=== PATIENT | male | born 1955 | race Caucasian/White ===

== ENCOUNTER → 2016-09-30 | Outpatient (CLI) | payer BC ==
[2016-09-30 08:32] LABS: Basophils # (A) 0.1 k/uL (0-0.2); Basophils % (A) 1 %; CH 30.6; CHCM 33.9; Eosinophils # (A) 0.3 k/uL (0-0.7); Eosinophils % (A) 4 %; HCT 38.9 % (39.0-53.0); HDW 2.61; HGB 12.8 gm/dL (13.0-17.5); Luc # (Auto) 0.18; Luc % (Auto) 3; Lymphocytes # (A) 1.3 k/uL (1.0-4.8); Lymphocytes % (A) 21 %; MCH 29.9 pg (25.0-35.0); MCHC 32.9 g/dL (31.0-37.0); MCV 90.8 fL (80.0-100.0); Mean Platelet Volume 7.6; Monocytes # (A) 0.4 k/uL (0-1.0); Monocytes % (A) 7 %; Neutrophils # (A) 4.1 k/uL (1.3-7.7); Neutrophils % (A) 65 %; RBC 4.29 m/uL (4.30-5.90); RDW 13.6 % (11.5-15.5); WBC 6.4 k/uL (3.8-10.6); WBC (Perox) 6.88
[2016-09-30 10:21] LABS: Prostate Specific Antigen 0.18 ng/mL (0.00-4.00)
== END | disposition home or self-care (01) ==
LOC: LABWHC1 07:50
DX: C61 Malignant neoplasm of prostate (principal)
CPT/HCPCS: 36415; 84153; 84403; 85025

== ENCOUNTER → 2017-02-05 | Outpatient (CLI) | payer BC | END | disposition home or self-care (01) | LOC: LABWHC1 07:42 | PROVIDERS: ATTEND Radiology Radiation Oncology | DX: C61 Malignant neoplasm of prostate (principal) | CPT/HCPCS: 36415; 84153 ==

== ENCOUNTER → 2017-12-22 | Outpatient (CLI) | payer BC | END | disposition home or self-care (01) | LOC: LABWHC1 09:58 | PROVIDERS: ATTEND Urology | DX: C61 Malignant neoplasm of prostate (principal) | CPT/HCPCS: 36415; 84153; 84403 ==

== ENCOUNTER → 2018-03-13 | Outpatient (CLI) | payer BC | END | disposition home or self-care (01) | LOC: LABWHC1 10:12 | PROVIDERS: ATTEND Urology | DX: C61 Malignant neoplasm of prostate (principal) | CPT/HCPCS: 36415; 84153; 84403 ==

== ENCOUNTER → 2018-07-16 | Outpatient (CLI) | payer BC ==
[2018-07-16 16:59] LABS: Albumin 4.3 g/dL (3.80-4.90); Albumin/Globulin Ratio 2.26 (1.20-2.10); Bilirubin, Conjugated 0.2 mg/dL (0.20-0.40); Bilirubin,Unconjugated 0.3 mg/dL; Globulin 1.9 g/dL (2.1-3.7); LDL Cholesterol,Calculated 60.6 mg/dL (0.0-131.0); Total Bilirubin 0.5 mg/dL (0.2-1.2); Total Protein 6.2 g/dL (6.2-8.2); VLDL Calculation 32.4 mg/dL (5.00-40.00)
== END ==
LOC: LABWHC1 08:09
PROVIDERS: ATTEND Internal Medicine Interventional Cardiology
DX: I10 Essential (primary) hypertension (principal); E78.2 Mixed hyperlipidemia
CPT/HCPCS: 36415; 80061; 80076

== ENCOUNTER → 2018-08-21 | Outpatient (CLI) | payer BC | END | disposition home or self-care (01) | LOC: LABWHC1 08:16 | PROVIDERS: ATTEND Urology | DX: C61 Malignant neoplasm of prostate (principal) | CPT/HCPCS: 36415; 84153 ==

== ENCOUNTER → 2019-02-26 | Outpatient (CLI) | payer BC | END | disposition home or self-care (01) | LOC: LABWHC1 08:43 | PROVIDERS: ATTEND Urology | DX: C61 Malignant neoplasm of prostate (principal) | CPT/HCPCS: 36415; 84153 ==

== ENCOUNTER → 2019-04-03 | Outpatient (CLI) | payer BC ==
--- NOTE | 2019-04-03 16:27 | US ---
EXAMINATION TYPE: US kidneys/renal and bladder DATE OF EXAM: 04/03/2019 COMPARISON: NONE CLINICAL HISTORY: R31.9 HEMATURIA. Hematuria EXAM MEASUREMENTS: Right Kidney: 11.6 x 5.2 x 4.9 cm Left Kidney: 11.6 x 5.0 x 4.8 cm Right Kidney: Hypoechoic area superior pole 2.3 x 2.6 x 2.1 cm. Left Kidney: Hypoechoic area mid pole 1.3 x 2.0 x 1.8cm. Bladder: Anechoic not fully distended. Bilateral Jets seen: No No nephrolithiasis is seen. No masses are identified. The urinary bladder is anechoic. IMPRESSION: 1. Bilateral simple appearing renal cysts
== END | disposition home or self-care (01) ==
LOC: RADUSWWP 09:24
PROVIDERS: ATTEND Urology
DX: N28.1 Cyst of kidney, acquired (principal)
CPT/HCPCS: 76770

== ENCOUNTER → 2019-04-08 | Outpatient (CLI) | payer BC ==
[2019-04-08 10:23] LABS: HCT 42.7 % (39.0-53.0); HGB 14.4 gm/dL (13.0-17.5); MCHC 33.7 g/dL (31.0-37.0); Mean Platelet Volume 6.9; Platelet Count 232 k/uL (150-450); RBC 4.64 m/uL (4.30-5.90); RDW 13.2 % (11.5-15.5); WBC 7.9 k/uL (3.8-10.6)
[2019-04-08 15:37] LABS: African American GFR (CKD) 81.2 (60.0-200.0); Albumin 4.3 g/dL (3.80-4.90); Albumin/Globulin Ratio 2.39 (1.60-3.17); Anion Gap 8.1 mmol/L (4.00-12.00); BUN/Creat Ratio 15.45 Ratio (12.00-20.00); Bilirubin, Conjugated 0.2 mg/dL (0.20-0.40); Bilirubin,Unconjugated 0.4 mg/dL; Calcium 8.9 mg/dL (8.7-10.3); Carbon Dioxide 25.9 mmol/L (21.6-31.8); Chol/HDL Ratio 3.67; Globulin 1.8 g/dL (1.6-3.3); LDL Cholesterol,Calculated 58.6 mg/dL (0.0-131.0); Potassium 5.1 mmol/L (3.5-5.5); Total Bilirubin 0.6 mg/dL (0.2-1.2); Total Protein 6.1 g/dL (6.2-8.2); VLDL Calculation 29.4 mg/dL (5.00-40.00)
== END | disposition home or self-care (01) ==
LOC: LABWHC1 09:30
PROVIDERS: ATTEND Internal Medicine Interventional Cardiology
DX: E78.2 Mixed hyperlipidemia (principal); I25.810 Atherosclerosis of coronary artery bypass graft(s) without angina pectoris; R53.82 Chronic fatigue, unspecified
CPT/HCPCS: 36415; 80053; 80061; 82248; 85027

== ENCOUNTER → 2019-04-17 | Outpatient (CLI) | payer BC ==
--- NOTE | 2019-04-17 12:23 | XR ---
EXAMINATION TYPE: XR chest 2V DATE OF EXAM: 04/17/2019 COMPARISON: 01/17/2014 HISTORY: Shortness of breath TECHNIQUE: Frontal and lateral views of the chest are obtained. FINDINGS: Scattered senescent parenchymal changes noted. Hyperinflation compatible with COPD. No evidence for infiltrate. No evidence for atelectasis. Heart size is stable. Mediastinal structures are stable and grossly unremarkable. No evidence for hilar prominence. Degenerative changes dorsal spine. IMPRESSION: 1. No evidence for acute pulmonary disease.
--- NOTE | 2019-04-17 12:23 | XR ---
EXAMINATION TYPE: XR orbit detect foreign body DATE OF EXAM: 04/17/2019 COMPARISON: NONE HISTORY: Foreign body TECHNIQUE: 3 views of the orbits are submitted FINDINGS: No radiopaque foreign bodies identified. IMPRESSION: The patient is cleared for MRI.
== END | disposition home or self-care (01) ==
LOC: RADXRMAIN 11:45
PROVIDERS: ATTEND Family Medicine
DX: I25.810 Atherosclerosis of coronary artery bypass graft(s) without angina pectoris (principal); H05.50 Retained (old) foreign body following penetrating wound of unspecified orbit
CPT/HCPCS: 70030; 71046

== ENCOUNTER → 2019-10-03 | Outpatient (CLI) | payer BC | END | disposition home or self-care (01) | LOC: LABWHC1 09:48 | PROVIDERS: ATTEND Urology | DX: C61 Malignant neoplasm of prostate (principal) | CPT/HCPCS: 36415; 84153 ==

== ENCOUNTER → 2020-03-29 | Outpatient (CLI) | payer BC ==
[2020-03-29 16:08] LABS: Albumin 4.3 g/dL (3.80-4.90); Albumin/Globulin Ratio 2.26 (1.60-3.17); Bilirubin, Conjugated 0.3 mg/dL (0.20-0.40); Bilirubin,Unconjugated 0.5 mg/dL; Globulin 1.9 g/dL (1.6-3.3); Total Bilirubin 0.8 mg/dL (0.3-1.2); Total Protein 6.2 g/dL (6.2-8.2)
[2020-03-29 16:09] LABS: Chol/HDL Ratio 3.64; LDL Cholesterol,Calculated 53.6 mg/dL (0.0-131.0); VLDL Calculation 33.4 mg/dL (5.00-40.00)
== END | disposition home or self-care (01) ==
LOC: LABWHC1 07:40
PROVIDERS: ATTEND Internal Medicine Interventional Cardiology
DX: E78.2 Mixed hyperlipidemia (principal)
CPT/HCPCS: 36415; 80061; 80076

== ENCOUNTER 2020-10-10 19:43 | Emergency (ER) | payer BC ==
[2020-10-10 19:50] VITALS: BP 177/105; PULSE 80; RESP 20; TEMP 98
--- NOTE | 2020-10-10 20:29 | ED ---
Male Urogenital HPI - General Chief complaint: Urogenital Stated complaint: Urogenital Time Seen by Provider: 10/10/20 19:53 Source: patient Mode of arrival: ambulatory Limitations: no limitations - History of Present Illness Initial comments: 65-year-old male with history of prostate cancer presents emergency Department with a chief complaint of not able to urinate. Patient reports undergoing a TURP procedure 5 years ago secondary to prostate cancer and was soon followed with radiation therapy. Patient reports she has been cancer free since. How ever, he does have intermittent gross hematuria and that is typical for him. He reports prior to today, he had no difficulty urinating aside from having increased frequency which is typical for him. While he was at the store today, he felt an urgency to go but was not able to urinate. He reports retaining urine ever since then. He states he came to the emergency department earlier today and prior to checking in, he went to the bathroom and was urinating without difficult. After he returned home, the obstructive urinary symptoms reoccurred so he decided to come back. He reports a sensation of a full bladder. He denies any penile discharge, testicular swelling or erythema. Denies dysuria. He does follow-up with - Related Data Home Medications Medication Instructions Recorded Confirmed Naproxen Sodium [Aleve] 440 mg PO DAILY 01/11/14 12/11/14 Omeprazole [PriLOSEC] 20 mg PO AC-BRKFST 01/11/14 12/11/14 Cyclobenzaprine [Flexeril] 10 mg PO TID 07/15/14 12/11/14 Finasteride [Proscar] 5 mg PO HS 07/15/14 12/11/14 Tamsulosin HCl 0.4 mg PO HS 07/15/14 12/11/14 Previous Rx's Medication Instructions Recorded Aspirin EC [Ecotrin Low Dose] 162 mg PO DAILY #60 tablet. 01/17/14 Atorvastatin [Lipitor] 40 mg PO HS #30 tablet 01/17/14 Metoprolol Tartrate [Lopressor] 25 mg PO BID #60 tab 01/17/14 lisinopriL [Zestril] 5 mg PO HS #30 tab 01/17/14 Allergies Allergy/AdvReac Type Severity Reaction Status Date / Time No Known Allergies Allergy Verified 10/10/20 19:50 Review of Systems ROS Statement: Those systems with pertinent positive or pertinent negative responses have been documented in the HPI. ROS Other: All systems not noted in ROS Statement are negative. 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 knee surgery. heart surgery Past Anesthesia/Blood Transfusion Reactions: No Reported Reaction Past Psychological History: No Psychological Hx Reported Smoking Status: Former smoker Past Alcohol Use History: None Reported Past Drug Use History: None Reported - Past Family History Mother Family Medical History: Cancer Additional Family Medical History / Comment(s): Renal Cancer Sister(s) Family Medical History: Myocardial Infarction ([place]) Additional Family Medical History / Comment(s): Both sisters have had heart attacks. One in late 50's. One at 65 Father Family Medical History: Congestive Heart Failure (CHF) Additional Family Medical History / Comment(s): 12/24 from complications of CHF General Exam Limitations: no limitations General appearance: alert, in no apparent distress, obese Head exam: Present: atraumatic, normocephalic, normal inspection Eye exam: Present: normal appearance, PERRL, EOMI Pupils: Present: normal accommodation ENT exam: Present: normal exam, normal oropharynx, mucous membranes moist Neck exam: Present: normal inspection, full ROM. Absent: tenderness Respiratory exam: Present: normal lung sounds bilaterally. Absent: respiratory distress Cardiovascular Exam: Present: regular rate, normal rhythm, normal heart sounds GI/Abdominal exam: Present: soft. Absent: distended, tenderness, guarding, rebound, rigid exam: Present: normal inspection. Absent: testicular tenderness, urethral discharge, scrotal swelling, vertical testicular lie Extremities exam: Present: normal inspection, full ROM, normal capillary refill. Absent: tenderness Back exam: Present: normal inspection, full ROM. Absent: tenderness Neurological exam: Present: alert, oriented X3, normal gait Psychiatric exam: Present: normal affect, normal mood Skin exam: Present: warm, dry, intact, normal color Course Vital Signs 10/10/20 19:46 Temperature 98 F Pulse Rate 80 Respiratory 20 Rate Blood Pressure 177/105 O2 Sat by Pulse 99 Oximetry Medical Decision Making - Medical Decision Making 65-year-old male with history of prostate cancer presents to emergency department with a chief complaint of not able to urinate. Physical examination is unremarkable. Patient was able to urinate initially when he arrived to the emergency department and a post void residual volume was 264 mL. Towards the end of his ED course, patient was not able to urinate again. CBC CMP unremarkable. UA positive for hematuria but no signs of urinary tract infec tion. King catheter will be administered he was given additional instructions regarding the proper maintenance of the King catheter. He will follow-up with Dr. Billingsley. Strict return parameters were thoroughly discussed with patient was understanding and agreeable. Case discussed with Dr. Hawkins - Lab Data Result diagrams: 10/10/20 20:25 10/10/20 20:25 Lab Results 10/10/20 10/10/20 10/10/20 Range/Units 20:04 20:25 20:25 WBC 8.1 (3.8-10.6) k/uL RBC 4.86 (4.30-5.90) m/uL Hgb 15.0 (13.0-17.5) gm/dL Hct 43.7 (39.0-53.0) % MCV 89.9 (80.0-100.0) fL MCH 30.9 (25.0-35.0) pg MCHC 34.4 (31.0-37.0) g/dL RDW 12.9 (11.5-15.5) % Plt Count 252 (150-450) k/uL MPV 7.4 Neutrophils % 67 % Lymphocytes % 19 % Monocytes % 8 % Eosinophils % 3 % Basophils % 1 % Neutrophils # 5.5 (1.3-7.7) k/uL Lymphocytes # 1.6 (1.0-4.8) k/uL Monocytes # 0.6 (0-1.0) k/uL Eosinophils # 0.3 (0-0.7) k/uL Basophils # 0.1 (0-0.2) k/uL Sodium 138 (137-145) mmol/L Potassium 4.3 (3.5-5.1) mmol/L Chloride 105 (98-107) mmol/L Carbon Dioxide 24 (22-30) mmol/L Anion Gap 9 mmol/L BUN 17 (9-20) mg/dL Creatinine 0.96 (0.66-1.25) mg/dL Est GFR (CKD-EPI)AfAm >90 (>60 ml/min/1.73 sqM) Est GFR (CKD-EPI)NonAf 82 (>60 ml/min/1.73 sqM) Glucose 101 H (74-99) mg/dL Calcium 9.1 (8.4-10.2) mg/dL Total Bilirubin 0.5 (0.2-1.3) mg/dL AST 29 (17-59) U/L ALT 29 (4-49) U/L Alkaline Phosphatase 91 (38-126) U/L Total Protein 7.1 (6.3-8.2) g/dL Albumin 4.4 (3.5-5.0) g/dL Urine Color Yellow Urine Appearance Clear (Clear) Urine pH 5.5 (5.0-8.0) Ur Specific G[place] 1.008 (1.001-1.035) Urine Protein Negative (Negative) Urine Glucose (UA) Negative (Negative) Urine Ketones Negative (Negative) Urine Blood Large H (Negative) Urine Nitrite Negative (Negative) Urine Bilirubin Negative (Negative) Urine Urobilinogen <2.0 (<2.0) mg/dL Ur Leukocyte Esterase Negative (Negative) Urine RBC 81 H (0-5) /hpf Urine WBC 4 (0-5) /hpf Amorphous Sediment Rare H (None) /hpf Urine Bacteria Rare H (None) /hpf Urine Mucus Rare H (None) /hpf Disposition Clinical Impression: Urinary retention, Hematuria, Encounter for King catheter replacement Disposition: HOME SELF-CARE Condition: Stable Instructions (If sedation given, give patient instructions): Urinary Retention in Men (ED) Additional Instructions: Follow-up with . Please return to the Emergency Department if symptoms worsen or any other concerns. Is patient prescribed a controlled substance at d/c from ED?: No Referrals: Francia Johnson III, MD [Primary Care Provider] - 1-2 days Jelani Billingsley MD [STAFF PHYSICIAN] - 1-2 days Time of Disposition: 21:06
[2020-10-10 20:36] LABS: Basophils # (A) 0.1 k/uL (0-0.2); Basophils % (A) 1 %; Eosinophils # (A) 0.3 k/uL (0-0.7); Eosinophils % (A) 3 %; HCT 43.7 % (39.0-53.0); Lymphocytes # (A) 1.6 k/uL (1.0-4.8); Lymphocytes % (A) 19 %; MCH 30.9 pg (25.0-35.0); MCHC 34.4 g/dL (31.0-37.0); MCV 89.9 fL (80.0-100.0); Mean Platelet Volume 7.4; Monocytes # (A) 0.6 k/uL (0-1.0); Monocytes % (A) 8 %; Neutrophils # (A) 5.5 k/uL (1.3-7.7); Neutrophils % (A) 67 %; Platelet Count 252 k/uL (150-450); RBC 4.86 m/uL (4.30-5.90); RDW 12.9 % (11.5-15.5); WBC 8.1 k/uL (3.8-10.6)
[2020-10-10 20:37] LABS: Amorphous Sediment,Urine Rare /hpf; Appearance,Urine Clear (Clear); Bacteria,Urine Rare /hpf; Bilirubin,Urine Negative (Negative); Blood,Urine Large (Negative); Color,Urine Yellow; Glucose,Urine (UA) Negative (Negative); Ketones,Urine Negative (Negative); Leukocyte Esterase,Urine Negative (Negative); Mucus,Urine Rare /hpf; Nitrite,Urine Negative (Negative); PH, Urine 5.5 (5.0-8.0); Protein,Urine Negative (Negative); RBC,Urine 81 /hpf (0-5); Specific Gravity,Urine 1.008 (1.001-1.035); Urobilinogen,Urine <2.0 mg/dL (<2.0); WBC,Urine 4 /hpf (0-5)
[2020-10-10 20:46] LABS: ALT 29 U/L (4-49); AST 29 U/L (17-59); African American GFR (CKD) >90 (>60 ml/min/1.73 sqM); Albumin 4.4 g/dL (3.5-5.0); Alkaline Phosphatase 91 U/L (38-126); Anion Gap 9 mmol/L; Blood Urea Nitrogen 17 mg/dL (9-20); Calcium 9.1 mg/dL (8.4-10.2); Carbon Dioxide 24 mmol/L (22-30); Chloride 105 mmol/L (98-107); Glucose 101 mg/dL (74-99); Non-African American GFR(CKD) 82 (>60 ml/min/1.73 sqM); Potassium 4.3 mmol/L (3.5-5.1); Sodium 138 mmol/L (137-145); Total Bilirubin 0.5 mg/dL (0.2-1.3); Total Protein 7.1 g/dL (6.3-8.2)
== END 2020-10-10 21:55 | disposition home or self-care (01) ==
LOC: EC 19:43
DX: R31.9 Hematuria, unspecified (principal); R33.9 Retention of urine, unspecified; Z46.6 Encounter for fitting and adjustment of urinary device; I25.10 Atherosclerotic heart disease of native coronary artery without angina pectoris; Z79.82 Long term (current) use of aspirin; Z85.46 Personal history of malignant neoplasm of prostate; Z87.891 Personal history of nicotine dependence; Z82.49 Family history of ischemic heart disease and other diseases of the circulatory system
CPT/HCPCS: 36415; 51702; 51798; 80053; 81001; 85025; 99283

== ENCOUNTER → 2020-10-30 | Outpatient (CLI) | payer BC | END | disposition home or self-care (01) | LOC: LABMAIN 08:51 | PROVIDERS: ATTEND Urology | DX: C61 Malignant neoplasm of prostate (principal) | CPT/HCPCS: 36415; 84153 ==

== ENCOUNTER → 2021-11-05 | Outpatient (CLI) | payer BC ==
[2021-11-05 12:30] LABS: Chol/HDL Ratio 3.24 Ratio; LDL Cholesterol,Calculated 63.4 mg/dL (0.0-131.0)
[2021-11-05 12:44] LABS: ALT 26 U/L (10-49); AST 17 U/L (14-35); Albumin 4.3 g/dL (3.8-4.9); Albumin/Globulin Ratio 2.05 (1.60-3.17); Alkaline Phosphatase 90 U/L (41-126); Bilirubin, Conjugated <0.20 mg/dL (0.20-0.40); Globulin 2.1 g/dL (1.6-3.3); Total Protein 6.4 g/dL (6.2-8.2)
== END | disposition home or self-care (01) ==
LOC: LABWHC1 08:05
PROVIDERS: ATTEND Internal Medicine Interventional Cardiology
DX: E78.2 Mixed hyperlipidemia (principal)
CPT/HCPCS: 36415; 80061; 80076

== ENCOUNTER → 2022-02-28 | Outpatient (CLI) | payer BC ==
[2022-02-28 14:47] LABS: Prostate Specific Antigen 19.8 ng/mL (0.00-4.50)
== END | disposition home or self-care (01) ==
LOC: LABWHC1 09:13
PROVIDERS: ATTEND Urology
DX: C61 Malignant neoplasm of prostate (principal)
CPT/HCPCS: 36415; 84153; 84403

== ENCOUNTER → 2022-05-20 | Outpatient (CLI) | payer BC ==
[2022-05-20 17:41] LABS: Testosterone <2.50 ng/mL (86.98-780.10)
== END | disposition home or self-care (01) ==
LOC: LABWHC1 08:59
PROVIDERS: ATTEND Urology
DX: C61 Malignant neoplasm of prostate (principal)
CPT/HCPCS: 36415; 84153; 84403

== ENCOUNTER → 2023-02-17 | Outpatient (CLI) | payer MEDICARE ==
[2023-02-18 08:44] LABS: Testosterone <10.00 ng/dL (86.98-780.10)
== END | disposition home or self-care (01) ==
LOC: LABWHC1 09:19
PROVIDERS: ATTEND Urology
DX: C61 Malignant neoplasm of prostate (principal)
CPT/HCPCS: 36415; 84153; 84403

== ENCOUNTER → 2023-06-01 | Outpatient (CLI) | payer MEDICARE, OTHER ==
[2023-06-01 16:53] LABS: Prostate Specific Antigen 0.14 ng/mL (0.000-4.500)
[2023-06-01 18:23] LABS: Testosterone <10.00 ng/dL (86.98-780.10)
== END | disposition home or self-care (01) ==
LOC: LABWHC1 11:39
PROVIDERS: ATTEND Urology
DX: C61 Malignant neoplasm of prostate (principal)
CPT/HCPCS: 36415; 84153; 84403

== ENCOUNTER → 2023-08-14 | Outpatient (CLI) | payer MEDICARE ==
--- NOTE | 2023-08-18 09:11 | NM ---
EXAMINATION TYPE: NM bone scan whole body DATE OF EXAM: 08/14/2023 12:06 PM CLINICAL INDICATION:Male, 67 years old with history of C61 prostate ca; COMPARISON: NM bone scan whole body 11/10/2014 TECHNIQUE: Intravenous administration 25.8 mCi Tc 99m MDP followed by multiple scintigraphic images o f the appendicular and axial skeleton. Additionally, small field of view planar anterior and posterio r images of the lumbosacral spine and pelvis. Lastly, coronal, transverse, and sagittal SPECT images of the lumbosacral spine and pelvis were generated for review.Lastly, small [id number] anterior, p osterior and lateral views of the chest were submitted for review. Images acquired 3.5 hours post injection. FINDINGS: No abnormal uptake is identified within the appendicular or axial skeleton to suggest metastatic dise ase. There is increased uptake seen in the central portion of the face likely from paranasal sinus disease . Mild activity about the shoulders, spine, hips and slightly greater activity in the knees especiall y medial compartment and medial proximal tibias, and mild activity about the ankles, most consistent with chronic degenerative changes. No other photopenic areas or areas of increased activity are ident ified. There is uptake seen in the kidneys and bladder which is normal physiologic. Some uptake seen in the groin area likely urinary contamination. IMPRESSION: No scintigraphic evidence of skeletal metastatic disease.
== END | disposition home or self-care (01) ==
LOC: RADNMMAIN 07:16
PROVIDERS: ATTEND Urology
DX: C61 Malignant neoplasm of prostate (principal)
CPT/HCPCS: 78306; A9503

== ENCOUNTER → 2023-09-26 | Outpatient (CLI) | payer MEDICARE ==
[2023-09-26 10:23] LABS: Prothrombin Time 10.5 sec (10.0-12.5)
[2023-09-26 15:33] LABS: HCT 37.5 % (39.6-50.0); HGB 12.6 g/dL (13.0-17.0); MCH 31.2 pg (27.0-32.0); MCHC 33.6 g/dL (32.0-37.0); MCV 92.8 FL (80.0-97.0); Mean Platelet Volume 10.5 FL (9.5-12.2); NRBC Per 100 WBC 0 X 10*3/uL (0.00-0.01); Platelet Count 262 X 10*3/uL (140-440); RBC 4.04 X 10*6/uL (4.40-5.60); RDW 12.6 % (11.5-14.5); WBC 7.12 X 10*3/uL (4.50-10.00)
[2023-09-26 15:43] LABS: BUN/Creat Ratio 18.57 Ratio (12.00-20.00); Calcium 9.6 mg/dL (8.7-10.3); Carbon Dioxide 23.6 mmol/L (21.6-31.8); Chloride 103 mmol/L (96-109); Glucose 157 mg/dL (70-110); Potassium 4.5 mmol/L (3.5-5.5); Sodium 140 mmol/L (135-145)
== END | disposition home or self-care (01) ==
LOC: LABWHC1 08:39
PROVIDERS: ATTEND Internal Medicine Interventional Cardiology
DX: Z01.812 Encounter for preprocedural laboratory examination (principal); I25.10 Atherosclerotic heart disease of native coronary artery without angina pectoris
CPT/HCPCS: 36415; 80048; 85027; 85610; 85730

== ENCOUNTER → 2023-11-23 | Outpatient (CLI) | payer MEDICARE ==
[2023-11-23 17:26] LABS: Testosterone <10.00 ng/dL (86.98-780.10)
== END | disposition home or self-care (01) ==
LOC: LABWHC1 10:13
PROVIDERS: ATTEND Urology
DX: C61 Malignant neoplasm of prostate (principal)
CPT/HCPCS: 36415; 84153; 84403

== ENCOUNTER → 2024-06-04 | Outpatient (CLI) | payer MEDICARE ==
[2024-06-04 16:57] LABS: Prostate Specific Antigen 0.08 ng/mL (0.000-6.500)
[2024-06-04 17:00] LABS: Testosterone <10.00 ng/dL (86.98-780.10)
== END | disposition home or self-care (01) ==
LOC: LABWHC1 10:32
PROVIDERS: ATTEND Urology
DX: C61 Malignant neoplasm of prostate (principal)
CPT/HCPCS: 36415; 84153; 84403

== ENCOUNTER 2024-12-12 19:46 | Inpatient (IN) | payer MEDICARE ==
[2024-12-12 20:17] LABS: Glucose,Whole Blood 420 mg/dL (70-110)
--- NOTE | 2024-12-12 20:23 | ED ---
Recheck HPI - General Chief Complaint: Recheck/Abnormal Lab/Rx Stated Complaint: Abnormal labs Time Seen by Provider: 12/12/24 19:53 Source: patient, EMS, RN notes reviewed Mode of arrival: EMS Limitations: no limitations - History of Present Illness Initial Comments: This is a 69-year-old male who presents to the emergency department for hyperglycemia. Patient had blood work done with his PCP yesterday which ended up revealing new onset diabetes. He was advised by his PCP to go to the emergency department. He initially presented to [facility] and they were concerned about DKA, and he was transferred here for further evaluation and diabetic education. Patient does report feeling increasingly thirsty and drinking a lot of water. He does also generally feel somewhat unwell. Denies any abdominal pain, nausea, or vomiting. Denies any chest pain or shortness of breath. MD Complaint: abnormal lab - Related Data Home Medications Medication Instructions Recorded Confirmed Apalutamide [Erleada] 120 mg PO BID 12/12/24 12/12/24 Aspirin EC [Ecotrin Low Dose] 81 mg PO DAILY 12/12/24 12/12/24 B.coagul,Subtilis/Inulin/Vit C 1 tab PO DAILY 12/12/24 12/12/24 [Culturelle Probio-Prebio Gummy] Calcium(Unknown Dose) 1 tab PO DAILY 12/12/24 12/12/24 Clopidogrel [Plavix] 75 mg PO DAILY 12/12/24 12/12/24 Isosorbide Mononitrate ER [Imdur] 30 mg PO DAILY 12/12/24 12/12/24 Metoprolol Succinate (ER) [Toprol 25 mg PO BID 12/12/24 12/12/24 Xl] Multivitamins, Thera [Multivitamin 1 tab PO DAILY 12/12/24 12/12/24 (formulary)] Omeprazole Magnesium [PriLOSEC OTC] 20 mg PO DAILY 12/12/24 12/12/24 Rosuvastatin Calcium [Crestor] 40 mg PO DAILY 12/12/24 12/12/24 Vitamin D3(Unknown Dose) 1 tab PO DAILY 12/12/24 12/12/24 Allergies Allergy/AdvReac Type Severity Reaction Status Date / Time No Known Allergies Allergy Verified 12/12/24 20:23 Review of Systems ROS Statement: Those systems with pertinent positive or pertinent negative responses have been documented in the HPI. ROS Other: All systems not noted in ROS Statement are negative. 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 knee luciano rgery. heart surgery Past Anesthesia/Blood Transfusion Reactions: No Reported Reaction Past Psychological History: No Psychological Hx Reported Smoking Status: Former smoker Past Alcohol Use History: Occasional Past Drug Use History: None Reported - Past Family History Mother Family Medical History: Cancer Additional Family Medical History / Comment(s): Renal Cancer Sister(s) Family Medical History: Myocardial Infarction ([place]) Additional Family Medical History / Comment(s): Both sisters have had heart attacks. One in late 50's. One at 65 Father Family Medical History: Congestive Heart Failure (CHF) Additional Family Medical History / Comment(s): 12/24 from comp lications of CHF General Exam Limitations: no limitations General appearance: alert, in no apparent distress Head exam: Present: atraumatic, normocephalic, normal inspection Respiratory exam: Present: normal lung sounds bilaterally. Absent: respiratory distress, wheezes, rales, rhonchi, stridor Cardiovascular Exam: Present: regular rate, normal rhythm GI/Abdominal exam: Present: soft, normal bowel sounds. Absent: distended, tende rness, guarding, rebound, rigid Neurological exam: Present: alert, oriented X3, CN II-XII intact Psychiatric exam: Present: normal affect, normal mood Skin exam: Present: warm, dry, intact, normal color. Absent: rash Course Vital Signs 12/12/24 12/12/24 19:50 23:36 Temperature 97.5 F L 98.2 F Pulse Rate 76 72 Respiratory 17 17 Rate Blood Pressure 133/72 116/72 O2 Sat by Pulse 96 96 Oximetry Medical Decision Making - Medical Decision Making This is a 69-year-old male who presents to the emergency department for hyperglycemia. Was pt. sent in by a medical professional or institution? @ -[facility] Did you speak to anyone other than the patient for history? @ -No Did you review nursing and triage notes? @ -Yes, and I agree, it is accurate with regards to the patient's symptoms. Were old charts reviewed? @ -Lab work from [facility]: Hemoglobin A1c: 13.4% Glucose: 624 Na: 127 Co2: 20 A pH: 7.35 Differential Diagnosis? @ -DM, DKA, HHS, medication, dietary intake, this is not meant to be an all- inclusive list. EKG interpreted by me (3pts min.)? @ -EKG interpreted by me demonstrating the following: Sinus rhythm. Ventricular rate 81 bpm, AK interval 189 ms, QRS duration 102 ms, QTc 430 ms. X-rays interpreted by me (1pt min.)? @ -Not obtained CT interpreted by me (1pt min.)? @ -Not obtained U/S interpreted by me (1pt. min.)? @ -Not obtained What testing was considered but not performed? (CT, X-rays, U/S, labs)? Why? @ -None What meds were considered but not given? Why? @ -None Did you discuss the management of the patient with other professionals? @ -Yes, Dr. Carrion, who accepts the patient for admission Did you reconcile home meds? @ -Yes Was smoking cessation discussed for >3mins.? @ -No Was critical care preformed (if so, how long)? @ -No Were there social determinants of health that impacted care today? How? (Homelessness, low income, unemployed, alcoholism, drug addiction, transportation, low edu. Level, literacy, decrease access to med. care, long term, rehab)? @ -No Was there de-escalation of care discussed even if they declined? (Discuss DNR or withdrawal of care, Hospice)? @ -No What co-morbidities impacted this encounter? (DM, HTN, Smoking, COPD, CAD, Cancer, CVA, Hep., AIDS, mental health diagnosis, sleep apnea, morbid obesity)? @ -CAD, HLD, HTN Was patient admitted / discharged? @ -Admitted. Patient transferred to our facility from [facility] for concern of DKA and new onset diabetes. Their hospitalist was not c omfortable accepting the patient for admission. He had a glucose of 624 at their facility prior to any intervention. Anion gap was 17 and bicarb was 20. They did treat the patient with a liter bolus of normal saline and started him on an insulin drip. Repeat lab work here demonstrates a glucose of 394, anion gap of 14, bicarb of 19, and he is acetone positive suggestive of a mild DKA at this point. Patient admitted to medicine for DKA and new onset diabetes. DKA protocol initiated. Case discussed with ED attending Dr. Valdovinos. Undiagnosed new problem with uncertain prognosis? @ -None Drug Therapy requiring intensive monitoring for toxicity (Heparin, Nitro, Insulin, Cardizem)? @ -Insulin Were any procedures done? @ -None Diagnosis/symptom? @ -DKA, new onset diabetes Acute, or Chronic, or Acute on Chronic? @ -Acute Uncomplicated (without systemic symptoms) or Complicated (systemic symptoms)? @ -Complicated Side effects of treatment? @ -None Exacerbation, Progression, or Severe Exacerbation] @ -Not applicable Poses a threat to life or bodily function? @ -Yes, if left untreated it can be life-threatening - Lab Data Result diagrams: 12/12/24 20:18 12/12/24 20:18 Lab Results 12/12/24 12/12/24 12/12/24 Range/Units 20:17 20:18 20:18 WBC 7.73 (4.50-10.00) 10*3/uL RBC 4.05 L (4.40-5.60) 10*6/uL Hgb 12.9 L (13.0-17.0) g/dL Hct 36.1 L (39.6-50.0) % MCV 89.1 (80.0-97.0) fL MCH 31.9 (27.0-32.0) pg MCHC 35.7 (32.0-37.0) g/dL Plt Count 230 (140-440) 10*3/uL MPV 11.0 (9.5-12.2) fL Immature Gran % (Auto) 0.4 % Neutrophils % 67.0 % Lymphocytes % 23.9 % Monocytes % 6.5 % Eosinophils % 1.7 % Basophils % 0.5 % Immature Gran # 0.03 (0.00-0.04) 10*3/uL Neutrophils # 5.18 (1.80-7.70) 10*3/uL Lymphocytes # 1.85 (0.90-5.00) 10*3/uL Monocytes # 0.50 (0.20-1.00) 10*3/uL Eosinophils # 0.13 (0.04-0.35) 10*3/uL Basophils # 0.04 (0.00-0.10) 10*3/uL VBG pH (7.31-7.41) VBG pCO2 (37-51) mmHg VBG HCO3 (24-28) mmol/L Sodium 131 L (137-145) mmol/L Potassium 4.5 (3.5-5.1) mmol/L Chloride 98 (98-107) mmol/L Carbon Dioxide 19 L (22-30) mmol/L Anion Gap 14 mmol/L BUN 28 H (9-20) mg/dL Creatinine 1.29 H (0.66-1.25) mg/dL Est GFR (CKD-EPI)AfAm 64 (>60 ml/min/1.73 sqM) Est GFR (CKD-EPI)NonAf 56 (>60 ml/min/1.73 sqM) Glucose 394 H (74-99) mg/dL POC Glucose (mg/dL) 420 H (70-110) mg/dL POC Glu Geoscientist ID Erasto Geiger Calcium 9.8 (8.4-10.2) mg/dL Phosphorus 3.2 (2.5-4.5) mg/dL Magnesium 1.7 (1.6-2.3) mg/dL Total Bilirubin 0.7 (0.2-1.3) mg/dL AST 27 (17-59) U/L ALT 20 (4-49) U/L Alkaline Phosphatase 72 (38-126) U/L Total Protein 6.3 (6.3-8.2) g/dL Albumin 3.9 (3.5-5.0) g/dL Urine Color Urine Appearance (Clear) Urine pH (5.0-8.0) Ur Specific Dorothy (1.001-1.035) Urine Protein (Negative) Urine Glucose (UA) (Negative) Urine Ketones (Negative) Urine Blood (Negative) Urine Nitrite (Negative) Urine Bilirubin (Negative) Urine Urobilinogen (<2.0) mg/dL Ur Leukocyte Esterase (Negative) Acetone, Qual Positive (Negative) 12/12/24 12/12/24 12/12/24 Range/Units 20:18 21:48 21:51 WBC (4.50-10.00) 10*3/uL RBC (4.40-5.60) 10*6/uL Hgb (13.0-17.0) g/dL Hct (39.6-50.0) % MCV (80.0-97.0) fL MCH (27.0-32.0) pg MCHC (32.0-37.0) g/dL Plt Count (140-440) 10*3/uL MPV (9.5-12.2) fL Immature Gran % (Auto) % Neutrophils % % Lymphocytes % % Monocytes % % Eosinophils % % Basophils % % Immature Gran # (0.00-0.04) 10*3/uL Neutrophils # (1.80-7.70) 10*3/uL Lymphocytes # (0.90-5.00) 10*3/uL Monocytes # (0.20-1.00) 10*3/uL Eosinophils # (0.04-0.35) 10*3/uL Basophils # (0.00-0.10) 10*3/uL VBG pH 7.36 (7.31-7.41) VBG pCO2 42 (37-51) mmHg VBG HCO3 24 (24-28) mmol/L Sodium (137-145) mmol/L Potassium (3.5-5.1) mmol/L Chloride (98-107) mmol/L Carbon Dioxide (22-30) mmol/L Anion Gap mmol/L BUN (9-20) mg/dL Creatinine (0.66-1.25) mg/dL Est GFR (CKD-EPI)AfAm (>60 ml/min/1.73 sqM) Est GFR (CKD-EPI)NonAf (>60 ml/min/1.73 sqM) Glucose (74-99) mg/dL POC Glucose (mg/dL) 397 H (70-110) mg/dL POC Glu Geoscientist ID Erasto Méndezsca Calcium (8.4-10.2) mg/dL Phosphorus (2.5-4.5) mg/dL Magnesium (1.6-2.3) mg/dL Total Bilirubin (0.2-1.3) mg/dL AST (17-59) U/L ALT (4-49) U/L Alkaline Phosphatase (38-126) U/L Total Protein (6.3-8.2) g/dL Albumin (3.5-5.0) g/dL Urine Color Colorless Urine Appearance Clear (Clear) Urine pH 5.5 (5.0-8.0) Ur Specific Dorothy 1.034 (1.001-1.035) Urine Protein Negative (Negative) Urine Glucose (UA) 4+ H (Negative) Urine Ketones 2+ H (Negative) Urine Blood Negative (Negative) Urine Nitrite Negative (Negative) Urine Bilirubin Negative (Negative) Urine Urobilinogen <2.0 (<2.0) mg/dL Ur Leukocyte Esterase Negative (Negative) Acetone, Qual (Negative) Disposition Clinical Impression: DKA (diabetic ketoacidosis), Diabetes mellitus, new onset Disposition: ADMITTED IP TO THIS HOSP
[2024-12-12] MEDS: SODIUM CHLORIDE 0.9% 500 ML 500 ML IV ONE (20:28)
[2024-12-12] MEDS: SODIUM CHLORIDE 0.9% 1,000 ML IV ONE (20:28)
[2024-12-12 20:33] LABS: Basophils # (A) 0.04 10*3/uL (0.00-0.10); Basophils % (A) 0.5 %; Eosinophils # (A) 0.13 10*3/uL (0.04-0.35); Eosinophils % (A) 1.7 %; HCT 36.1 % (39.6-50.0); HGB 12.9 g/dL (13.0-17.0); Lymphocytes # (A) 1.85 10*3/uL (0.90-5.00); Lymphocytes % (A) 23.9 %; MCH 31.9 pg (27.0-32.0); MCHC 35.7 g/dL (32.0-37.0); MCV 89.1 fL (80.0-97.0); Monocytes % (A) 6.5 %; Neutrophils # (A) 5.18 10*3/uL (1.80-7.70); Platelet Count 230 10*3/uL (140-440); RBC 4.05 10*6/uL (4.40-5.60); RDW 11.9 % (11.5-14.5); WBC 7.73 10*3/uL (4.50-10.00)
[2024-12-12 20:34] LABS: VBG PH 7.36 (7.31-7.41)
[2024-12-12 20:53] LABS: ALT 20 U/L (4-49); AST 27 U/L (17-59); African American GFR (CKD) 64 (>60 ml/min/1.73 sqM); Albumin 3.9 g/dL (3.5-5.0); Alkaline Phosphatase 72 U/L (38-126); Anion Gap 14 mmol/L; Blood Urea Nitrogen 28 mg/dL (9-20); Calcium 9.8 mg/dL (8.4-10.2); Carbon Dioxide 19 mmol/L (22-30); Chloride 98 mmol/L (98-107); Glucose 394 mg/dL (74-99); Magnesium 1.7 mg/dL (1.6-2.3); Non-African American GFR(CKD) 56 (>60 ml/min/1.73 sqM); Phosphorus 3.2 mg/dL (2.5-4.5); Potassium 4.5 mmol/L (3.5-5.1); Sodium 131 mmol/L (137-145); Total Bilirubin 0.7 mg/dL (0.2-1.3); Total Protein 6.3 g/dL (6.3-8.2)
[2024-12-12] MEDS ORDERED: MORPHINE SULFATE 4 MG/ML SYRINGE IV PRN (21:35)
[2024-12-12] MEDS ORDERED: HYDROcodone/APAP 5-325MG 1 EACH TAB PO PRN (21:35)
[2024-12-12] MEDS ORDERED: ACETAMINOPHEN TAB 325 MG TAB PO PRN (21:35)
[2024-12-12] MEDS ORDERED: NALOXONE 0.4 MG/ML 1 ML VIAL IV PRN (21:35)
[2024-12-12] MEDS: INSULIN REGULAR 100 UNIT in SODIUM CHLORIDE 0.9% 100 ML IV SCH (21:42)
[2024-12-12] MEDS: SODIUM CHLORIDE 0.9% 1,000 ML IV SCH (21:45)
[2024-12-12 21:50] LABS: Glucose,Whole Blood 397 mg/dL (70-110)
[2024-12-12 22:27] LABS: Appearance,Urine Clear (Clear); Bilirubin,Urine Negative (Negative); Blood,Urine Negative (Negative); Color,Urine Colorless; Glucose,Urine (UA) 4+ (Negative); Leukocyte Esterase,Urine Negative (Negative); Nitrite,Urine Negative (Negative); PH, Urine 5.5 (5.0-8.0); Protein,Urine Negative (Negative); Specific Gravity,Urine 1.034 (1.001-1.035); Urobilinogen,Urine <2.0 mg/dL (<2.0)
[2024-12-12 22:43] LABS: Ketones,Urine 2+ (Negative)
[2024-12-12 23:06] LABS: Glucose,Whole Blood 317 mg/dL (70-110)
[2024-12-12 23:52] LABS: Glucose,Whole Blood 297 mg/dL (70-110)
[2024-12-13] MEDS: D5-0.45% NACL WITH KCL 20MEQ/L 1,000 ML IV SCH (00:10)
[2024-12-13 00:23] LABS: African American GFR (CKD) 68 (>60 ml/min/1.73 sqM); Anion Gap 8 mmol/L; Blood Urea Nitrogen 26 mg/dL (9-20); Carbon Dioxide 21 mmol/L (22-30); Chloride 105 mmol/L (98-107); Glucose 310 mg/dL (74-99); Non-African American GFR(CKD) 59 (>60 ml/min/1.73 sqM); Potassium 3.4 mmol/L (3.5-5.1); Sodium 134 mmol/L (137-145)
[2024-12-13 01:03] LABS: Glucose,Whole Blood 283 mg/dL (70-110)
[2024-12-13 01:59] LABS: Glucose,Whole Blood 265 mg/dL (70-110)
[2024-12-13 03:01] LABS: Glucose,Whole Blood 213 mg/dL (70-110)
[2024-12-13 04:00] LABS: Glucose,Whole Blood 164 mg/dL (70-110)
[2024-12-13 04:57] LABS: African American GFR (CKD) 79 (>60 ml/min/1.73 sqM); Anion Gap 6 mmol/L; Blood Urea Nitrogen 25 mg/dL (9-20); Carbon Dioxide 20 mmol/L (22-30); Chloride 109 mmol/L (98-107); Glucose 125 mg/dL (74-99); Non-African American GFR(CKD) 68 (>60 ml/min/1.73 sqM); Potassium 3.5 mmol/L (3.5-5.1); Sodium 135 mmol/L (137-145)
[2024-12-13 05:13] LABS: Glucose,Whole Blood 114 mg/dL (70-110)
[2024-12-13 06:05] LABS: Glucose,Whole Blood 104 mg/dL (70-110)
[2024-12-13] MEDS: PANTOPRAZOLE 40 MG TABLET PO SCH (06:24)
[2024-12-13 07:09] LABS: Glucose,Whole Blood 115 mg/dL (70-110)
[2024-12-13 08:13] LABS: Glucose,Whole Blood 150 mg/dL (70-110)
[2024-12-13] MEDS: CALCIUM CARBONATE 500 MG CHEWABLE PO SCH (08:19)
[2024-12-13] MEDS: METOPROLOL SUCCINATE (ER) 25 MG TAB.ER.24H PO SCH (08:32)
[2024-12-13] MEDS: ASPIRIN 81 MG PO SCH (08:32)
[2024-12-13] MEDS: ISOSORBIDE MONONITRATE ER 30 MG TAB.ER.24H PO SCH (08:32)
[2024-12-13] MEDS: PANTOPRAZOLE 40 MG/10 ML VIAL IV SCH (08:32)
[2024-12-13] MEDS: ATORVASTATIN 80 MG TAB PO SCH (08:32)
[2024-12-13] MEDS: CLOPIDOGREL 75 MG TAB PO SCH (08:32)
[2024-12-13] MEDS: LACTOBACILLUS ACIDOPHILUS/PECT 1 EACH CAPSULE PO SCH (08:32)
[2024-12-13] MEDS: INSULIN LISPRO (HumaLOG) 100 UNIT/ML 10 mL VL SQ SCH (09:20)
[2024-12-13] MEDS: CHOLECALCIFEROL 25 MCG (1000 IU) TABLET PO SCH (09:20)
[2024-12-13] MEDS: metFORMIN 500 MG TAB PO SCH (09:20)
[2024-12-13] MEDS: PSYLLIUM HUSK 100% 6 GM PACKET PO SCH (09:20)
[2024-12-13] MEDS: MULTIVITAMINS, THERA 1 EACH TAB PO SCH (09:20)
[2024-12-13] MEDS: INSULIN GLARGINE (LANTUS) 100 UNIT/ML SYR SQ SCH (09:36)
[2024-12-13 11:53] LABS: African American GFR (CKD) 75 (>60 ml/min/1.73 sqM); Anion Gap 8 mmol/L; Blood Urea Nitrogen 23 mg/dL (9-20); Calcium 8.4 mg/dL (8.4-10.2); Carbon Dioxide 20 mmol/L (22-30); Chloride 103 mmol/L (98-107); Glucose 259 mg/dL (74-99); Non-African American GFR(CKD) 65 (>60 ml/min/1.73 sqM); Sodium 131 mmol/L (137-145)
[2024-12-13 12:04] LABS: Glucose,Whole Blood 291 mg/dL (70-110)
[2024-12-13] MEDS ORDERED: INSULIN LISPRO (HumaLOG) 100 UNIT/ML 10 mL VL SQ SCH (12:30)
[2024-12-13] MEDS: DAPAGLIFLOZIN PROPANEDIOL 10 MG TABLET PO SCH (14:01)
[2024-12-13] MEDS: ENOXAPARIN 40 MG/0.4 ML SYRINGE SQ SCH (14:02)
[2024-12-13 14:41] VITALS: BMI 39.1
[2024-12-13 15:21] LABS: Chol/HDL Ratio 5.12 Ratio
[2024-12-13 16:35] LABS: Glucose,Whole Blood 255 mg/dL (70-110)
--- NOTE | 2024-12-13 19:04 | P.HPIM ---
History of Present Illness H&P Date: 12/13/24 Chief Complaint: High sugars Pleasant 69-year-old who follows with Dr. Heaven Pierre. 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 Patient had a blood work done and the patient actually came back to be very high. Sent to [facility]. They felt patient had DKA unable to manage the hence patient was sent down here. Patient serum acetone was positive. And urine ketone 2+. Patient started insulin drip on the DKA protocol. Patient has been feeling increasingly tired. Drinking excessive water having urine frequency some weight loss over the last few days. This morning patient's appetite is still not very good. Somewhat tired. Review of systems: GEN.: Tired EYES: None HEENT: None NECK: None RESPIRATORY: None CARDIOVASCULAR: None GASTROINTESTINAL: None GENITOURINARY: None MUSCULOSKELETAL: [Joint pains LYMPHATICS: None HEMATOLOGICAL: None PSYCHIATRY: None NEUROLOGICAL: None Social history: . Used to be a truck dispatcher. 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 Alcohol very rarely Physical examination: VITAL SIGNS: 97.5, 76, 17, 133 x 72, 96% room air GENERAL: BMI 39.1,. Reclining bed awake tired EYES: Pupils equal. Conjunctiva hedy l. HEENT: External appearance of nose and ears normal, oral cavity grossly normal. NECK: JVD not raised; masses not palpable. HEART: First and second heart sounds are normal; no edema. LUNGS: Respiratory rate normal; clear to auscultation. ABDOMEN: Soft, nontender, liver spleen not palpable, no masses palpable. PSYCH: Alert and oriented x3; mood and affect hedy l. MUSCULOSKELETAL:No Clubbing/cyanosis;muscles-grossly intact. OA in the hands NEUROLOGICAL: Cranial nerves grossly intact; no facial asymmetry, power and sensation grossly intact. LYMPHATICS: No lymph nodes palpable in the axilla and neck INVESTIGATIONS, reviewed in the clinical context: December 12, 2024: White count 7.7 hemoglobin 12.9 platelets 230 sodium 131 potassium 4.5 BUN 28 creatinine 1.29 blood glucose 394 UA ketone 2+.'s serum acetone positive EKG tracing personally reviewed by me-normal sinus rhythm. Flipped T waves and ST stapes anterolateral leads. Assessment and plan: - New onset diabetic ketoacidosis Patient has a blood glucose of 394. Urine ketone 2+. Serum acetone positive. Patient started on DKA protocol. Overnight. - Diabetes mellitus type 2, severe, uncontrolled new diagnosis Patient this morning is being started on Lantus 25 units and Humalog 5 units with each meal. - Hyponatremia, likely pseudo due to hypoglycemia Repeat labs - Prostate cancer Patient receives apalutamide. Has received hormone injections - CAD with coronary bypass in 2013 Crestor. Toprol-XL. Imdur. Plavix. Aspirin. - Hyperlipidemia Crestor 40 mg a day - Essential hypertension Toprol-XL 25 mg twice daily - Suspect underlying chronic kidney disease. Repeat UA in the morning. Renal ultrasound. IV fluids. - Full code Care was discussed with patient. Dietitian was consulted. Questions answered. Given the complexity and severity of patient's condition expect the patient to be in the hospital at least for 2 overnights - Past Medical History Past Medical History: Coronary Artery Disease (CAD), Diabetes Mellitus, Prostate Disorder Additional Past Medical History / Comment(s): arthritis, status post triple bypass 01/14/2014 History of Any Multi-Drug Resistant Organisms: None Reported Past Surgical History: Orthopedic Surgery Additional Past Surgical History / Comment(s): pilonidal cyst removal. knee surgery. heart surgery Past Anesthesia/Blood Transfusion Reactions: No Reported Reaction Past Psychological History: No Psychological Hx Reported Smoking Status: Former smoker Past Alcohol Use History: Occasional Past Drug Use History: None Reported - Past Family History Mother Family Medical History: Cancer Additional Family Medical History / Comment(s): Renal Cancer Sister(s) Family Medical History: Myocardial Infarction (PR) Additional Family Medical History / Comment(s): Both sisters have had heart attacks. One in late 50's. One at 65 Father Family Medical History: Congestive Heart Failure (CHF) Additional Family Medical History / Comment(s): 12/24 from complications of CHF Medications and Allergies Home Medications Medication Instructions Recorded Confirmed Type Apalutamide [Erleada] 120 mg PO BID 12/12/24 12/12/24 History Aspirin EC [Ecotrin Low Dose] 81 mg PO DAILY 12/12/24 12/12/24 History B.coagul,Subtilis/Inulin/Vit C 1 tab PO DAILY 12/12/24 12/12/24 History [Culturelle Probio-Prebio Gummy] Calcium(Unknown Dose) 1 tab PO DAILY 12/12/24 12/12/24 History Clopidogrel [Plavix] 75 mg PO DAILY 12/12/24 12/12/24 History Isosorbide Mononitrate ER [Imdur] 30 mg PO DAILY 12/12/24 12/12/24 History Metoprolol Succinate (ER) [Toprol 25 mg PO BID 12/12/24 12/12/24 History Xl] Multivitamins, Thera [Multivitamin 1 tab PO DAILY 12/12/24 12/12/24 History (formulary)] Omeprazole Magnesium [PriLOSEC OTC] 20 mg PO DAILY 12/12/24 12/12/24 History Rosuvastatin Calcium [Crestor] 40 mg PO DAILY 12/12/24 12/12/24 History Vitamin D3(Unknown Dose) 1 tab PO DAILY 12/12/24 12/12/24 History Allergies Allergy/AdvReac Type Severity Reaction Status Date / Time No Known Allergies Allergy Verified 12/12/24 20:23 Physical Exam Vitals: Vital Signs Temp Pulse Pulse Resp BP BP Pulse Ox 12/13/24 11:05 97.8 F 64 16 114/68 97 12/13/24 08:17 74 16 12/13/24 08:16 97.6 F 74 16 132/82 98 12/13/24 04:00 68 16 107/68 95 12/13/24 01:00 97.7 F 82 16 143/83 98 12/12/24 23:36 98.2 F 72 17 116/72 96 12/12/24 19:50 97.5 F L 76 17 133/72 96 Intake and Output 12/12/24 12/13/24 12/13/24 22:59 06:59 14:59 Intake Total 101.188 205.987 Balance 101.188 205.987 Intake: Intake, IV Titration 101.188 5.987 Amount Insulin Regular 100 unit 101.188 5.987 In Sodium Chloride 0.9% 100 ml @ 0.1 UNITS/KG/HR 10.995 mls/hr IV .[id number] Rx#:[id number] Oral 0 200 Other: Voiding Method Toilet Toilet Urinal Urinal # Voids 1 1 # Bowel Movements 1 Weight 108.862 kg 109.9 kg Results CBC & Chem 7: 12/12/24 20:18 12/13/24 11:10 Labs: Abnormal Lab Results - Last 24 Hours (Table) 12/12/24 12/12/24 12/12/24 Range/Units 20:17 20:18 20:18 RBC 4.05 L (4.40-5.60) 10*6/uL Hgb 12.9 L (13.0-17.0) g/dL Hct 36.1 L (39.6-50.0) % Sodium 131 L (137-145) mmol/L Potassium (3.5-5.1) mmol/L Chloride (98-107) mmol/L Carbon Dioxide 19 L (22-30) mmol/L BUN 28 H (9-20) mg/dL Creatinine 1.29 H (0.66-1.25) mg/dL Glucose 394 H (74-99) mg/dL POC Glucose (mg/dL) 420 H (70-110) mg/dL Hemoglobin A1c (<=6.0) % Phosphorus (2.5-4.5) mg/dL Urine Glucose (UA) (Negative) Urine Ketones (Negative) 12/12/24 12/12/24 12/12/24 Range/Units 21:48 21:51 23:05 RBC (4.40-5.60) 10*6/uL Hgb (13.0-17.0) g/dL Hct (39.6-50.0) % Sodium (137-145) mmol/L Potassium (3.5-5.1) mmol/L Chloride (98-107) mmol/L Carbon Dioxide (22-30) mmol/L BUN (9-20) mg/dL Creatinine (0.66-1.25) mg/dL Glucose (74-99) mg/dL POC Glucose (mg/dL) 397 H 317 H (70-110) mg/dL Hemoglobin A1c (<=6.0) % Phosphorus (2.5-4.5) mg/dL Urine Glucose (UA) 4+ H (Negative) Urine Ketones 2+ H (Negative) 12/12/24 12/13/24 12/13/24 Range/Units 23:50 00:02 01:01 RBC (4.40-5.60) 10*6/uL Hgb (13.0-17.0) g/dL Hct (39.6-50.0) % Sodium 134 L (137-145) mmol/L Potassium 3.4 L (3.5-5.1) mmol/L Chloride (98-107) mmol/L Carbon Dioxide 21 L (22-30) mmol/L BUN 26 H (9-20) mg/dL Creatinine (0.66-1.25) mg/dL Glucose 310 H (74-99) mg/dL POC Glucose (mg/dL) 297 H 283 H (70-110) mg/dL Hemoglobin A1c (<=6.0) % Phosphorus (2.5-4.5) mg/dL Urine Glucose (UA) (Negative) Urine Ketones (Negative) 12/13/24 12/13/24 12/13/24 Range/Units 01:58 02:58 03:57 RBC (4.40-5.60) 10*6/uL Hgb (13.0-17.0) g/dL Hct (39.6-50.0) % Sodium (137-145) mmol/L Potassium (3.5-5.1) mmol/L Chloride (98-107) mmol/L Carbon Dioxide (22-30) mmol/L BUN (9-20) mg/dL Creatinine (0.66-1.25) mg/dL Glucose (74-99) mg/dL POC Glucose (mg/dL) 265 H 213 H 164 H (70-110) mg/dL Hemoglobin A1c (<=6.0) % Phosphorus (2.5-4.5) mg/dL Urine Glucose (UA) (Negative) Urine Ketones (Negative) 12/13/24 12/13/24 12/13/24 Range/Units 04:18 04:18 04:18 RBC (4.40-5.60) 10*6/uL Hgb (13.0-17.0) g/dL Hct (39.6-50.0) % Sodium 135 L (137-145) mmol/L Potassium (3.5-5.1) mmol/L Chloride 109 H (98-107) mmol/L Carbon Dioxide 20 L (22-30) mmol/L BUN 25 H (9-20) mg/dL Creatinine (0.66-1.25) mg/dL Glucose 125 H (74-99) mg/dL POC Glucose (mg/dL) (70-110) mg/dL Hemoglobin A1c 14.5 H (<=6.0) % Phosphorus 2.2 L (2.5-4.5) mg/dL Urine Glucose (UA) (Negative) Urine Ketones (Negative) 12/13/24 12/13/24 12/13/24 Range/Units 05:12 07:08 08:11 RBC (4.40-5.60) 10*6/uL Hgb (13.0-17.0) g/dL Hct (39.6-50.0) % Sodium (137-145) mmol/L Potassium (3.5-5.1) mmol/L Chloride (98-107) mmol/L Carbon Dioxide (22-30) mmol/L BUN (9-20) mg/dL Creatinine (0.66-1.25) mg/dL Glucose (74-99) mg/dL POC Glucose (mg/dL) 114 H 115 H 150 H (70-110) mg/dL Hemoglobin A1c (<=6.0) % Phosphorus (2.5-4.5) mg/dL Urine Glucose (UA) (Negative) Urine Ketones (Negative) Thrombosis Risk Factor Assmnt - Choose All That Apply Any of the Below Risk Factors Present?: Yes Each Factor Represents 1 point: Obesity (BMI >25) Other Risk Factors: Yes Each Risk Factor Represents 2 Points: Age 61-74 years Other congenital or acquired thrombophilia - If yes, enter type in comment: No Thrombosis Risk Factor Assessment Total Risk Factor Score: 3 Thrombosis Risk Factor Assessment Level: Moderate Risk
[2024-12-13] MEDS: LACTATED RINGERS 1,000 ML IV SCH (19:56)
[2024-12-13 20:03] LABS: Glucose,Whole Blood 259 mg/dL (70-110)
[2024-12-14 06:12] LABS: Glucose,Whole Blood 192 mg/dL (70-110)
[2024-12-14 07:32] VITALS: BP 114/79
[2024-12-14 08:06] LABS: African American GFR (CKD) 69 (>60 ml/min/1.73 sqM); Anion Gap 8 mmol/L; Blood Urea Nitrogen 19 mg/dL (9-20); Calcium 8.9 mg/dL (8.4-10.2); Carbon Dioxide 20 mmol/L (22-30); Chloride 106 mmol/L (98-107); Glucose 174 mg/dL (74-99); Non-African American GFR(CKD) 60 (>60 ml/min/1.73 sqM); Potassium 4.1 mmol/L (3.5-5.1); Sodium 134 mmol/L (137-145)
[2024-12-14] MEDS: ONDANSETRON 4 MG/2 ML VIAL IVP PRN (08:07)
[2024-12-14 11:47] LABS: Glucose,Whole Blood 176 mg/dL (70-110)
[2024-12-14 11:51] VITALS: PULSE 77; RESP 18; TEMP 97.9
--- NOTE | 2024-12-15 23:10 | P.DS ---
Providers Date of admission: 12/12/24 22:22 Expected date of discharge: 12/14/24 Attending physician: Jan Carrion Primary care physician: Heaven Pierre MD Hospital Course: Chief Complaint: High sugars Pleasant 69-year-old who follows with Dr. Heaven Pierre. 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 Patient had a blood work done and the patient actually came back to be very high. Sent to [facility]. They felt patient had DKA unable to manage the hence patient was sent down here. Patient serum acetone was positive. And urine ketone 2+. Patient started insulin drip on the DKA protocol. Patient has been feeling increasingly tired. Drinking excessive water having urine frequency some weight loss over the last few days. This morning patient's appetite is still not very good. Somewhat tired. December 14: Patient's insulin adjusted. Lengthy talk with the patient and family at the bedside. Prescription written out. Seen by dietitian. Patient to follow-up with his PCP. Questions answered. Last Accu-Chek 176. Glucometer provided Discussion and discharge planning more than 35 minutes Social history: . Used to be a class a truck driver. 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 Alcohol very rarely Physical examination: VITAL SIGNS: 97.9, 77, 18, 114 x 79, 97% room air GENERAL: BMI 39.1,. Up in a chair, comfortable EYES: Pupils equal. Conjunctiva hedy l. HEENT: External appearance of nose and ears normal, oral cavity grossly normal. NECK: JVD not raised; masses not palpable. HEART: First and second heart sounds are normal; no edema. LUNGS: Respiratory rate normal; clear to auscultation. ABDOMEN: Soft, nontender, liver spleen not palpable, no masses palpable. PSYCH: Alert and oriented x3; mood and affect hedy l. MUSCULOSKELETAL:No Clubbing/cyanosis;muscles-grossly intact. OA in the hands INVESTIGATIONS, reviewed in the clinical context: December 14: Potassium 4.1 creatinine 1.21 December 12, 2024: White count 7.7 hemoglobin 12.9 platelets 230 sodium 131 potassium 4.5 BUN 28 creatinine 1.29 blood glucose 394 UA ketone 2+.'s serum acetone positive EKG tracing personally reviewed by me-normal sinus rhythm. Flipped T waves and ST stapes anterolateral leads. Assessment and plan: - New onset diabetic ketoacidosis: Resolved Patient has a blood glucose of 394. Urine ketone 2+. Serum acetone positive. Patient started on DKA protocol. - Diabetes mellitus type 2, severe, uncontrolled: New diagnosis Lantus 25 units and Humalog 5 units with each meal. - Hyponatremia, likely pseudo due to hypoglycemia Repeat labs - Prostate cancer Patient receives apalutamide. Has received hormone injections - CAD with coronary bypass in 2013 Crestor. Toprol-XL. Imdur. Plavix. Aspirin. - Hyperlipidemia Crestor 40 mg a day - Essential hypertension Toprol-XL 25 mg twice daily - Suspect underlying chronic kidney disease. Further workup repeat labs outpatient - Full code Disposition: Home - Labs: CBC BMP in about a week with PCP Past Medical History Past Medical History: Coronary Artery Disease (CAD), Diabetes Mellitus, Prostate Disorder Additional Past Medical History / Comment(s): arthritis, status post triple bypass 01/14/2014 History of Any Multi-Drug Resistant Organisms: None Reported Past Surgical History: Orthopedic Surgery Additional Past Surgical History / Comment(s): pilonidal cyst removal. knee surgery. heart surgery Past Anesthesia/Blood Transfusion Reactions: No Reported Reaction Past Psychological History: No Psychological Hx Reported Smoking Status: Former smoker Past Alcohol Use History: Occasional Past Drug Use History: None Reported Plan - Discharge Summary Discharge Rx Participant: Yes New Discharge Prescriptions: New Dapagliflozin Propanediol [Farxiga] 10 mg PO DAILY #30 tab metFORMIN HCL [Glucophage] 500 mg PO BID-W/MEALS #60 tab INSULIN LISPRO (HumaLOG) [HumaLOG] 5 unit SQ AC-TID #100 each Psyllium Husk 100% [Metamucil Packet] 6 gm PO BID #60 packet Insulin Glargine (Lantus) [Lantus Vial] 25 unit SQ DAILY@0700 #100 each Continue Omeprazole Magnesium [PriLOSEC OTC] 20 mg PO DAILY Aspirin EC [Ecotrin Low Dose] 81 mg PO DAILY Apalutamide [Erleada] 120 mg PO BID Vitamin D3(Unknown Dose) 1 tab PO DAILY B.coagul,Subtilis/Inulin/Vit C [Culturelle Probio-Prebio Gummy] 1 tab PO DAILY Rosuvastatin Calcium [Crestor] 40 mg PO DAILY Multivitamins, Thera [Multivitamin (formulary)] 1 tab PO DAILY Calcium(Unknown Dose) 1 tab PO DAILY Metoprolol Succinate (ER) [Toprol XL] 25 mg PO BID Isosorbide Mononitrate ER [Imdur] 30 mg PO DAILY Clopidogrel [Plavix] 75 mg PO DAILY Discharge Medication List Apalutamide [Erleada] 120 mg PO BID 12/12/24 [History] Aspirin EC [Ecotrin Low Dose] 81 mg PO DAILY 12/12/24 [History] B.coagul,Subtilis/Inulin/Vit C [Culturelle Probio-Prebio Gummy] 1 tab PO DAILY 12/12/24 [History] Calcium(Unknown Dose) 1 tab PO DAILY 12/12/24 [History] Clopidogrel [Plavix] 75 mg PO DAILY 12/12/24 [History] Isosorbide Mononitrate ER [Imdur] 30 mg PO DAILY 12/12/24 [History] Metoprolol Succinate (ER) [Toprol XL] 25 mg PO BID 12/12/24 [History] Multivitamins, Thera [Multivitamin (formulary)] 1 tab PO DAILY 12/12/24 [History] Omeprazole Magnesium [PriLOSEC OTC] 20 mg PO DAILY 12/12/24 [History] Rosuvastatin Calcium [Crestor] 40 mg PO DAILY 12/12/24 [History] Vitamin D3(Unknown Dose) 1 tab PO DAILY 12/12/24 [History] Dapagliflozin Propanediol [Farxiga] 10 mg PO DAILY #30 tab 12/14/24 [Rx] INSULIN LISPRO (HumaLOG) [HumaLOG] 5 unit SQ AC-TID #100 each 12/14/24 [Rx] Insulin Glargine (Lantus) [Lantus Vial] 25 unit SQ DAILY@0700 #100 each 12/14/24 [Rx] Psyllium Husk 100% [Metamucil Packet] 6 gm PO BID #60 packet 12/14/24 [Rx] metFORMIN HCL [Glucophage] 500 mg PO BID-W/MEALS #60 tab 12/14/24 [Rx] Follow up Appointment(s)/Referral(s): Heaven Pierre MD [Primary Care Provider] - 1-2 days Patient Instructions/Handouts: Diabetic Ketoacidosis (DC), Foot Care for People with Diabetes (DC), Hypoglycemia in a Person with Diabetes (DC), Type 2 Diabetes in Adults: New Diagnosis (DC), Diabetes and Your Skin (DC) Discharge Disposition: HOME SELF-CARE
== END 2024-12-14 14:20 | disposition home or self-care (01) | DRG 639 ==
LOC: EC 19:46 → 3SCARD 22:22 → UNDOADMOB 22:22 → 3SCARD 22:23 → UNDODISOB 12-14 14:20
PROVIDERS: ADMIT Hospitalist; ATTEND Hospitalist
DX: E11.10 Type 2 diabetes mellitus with ketoacidosis without coma (principal); C61 Malignant neoplasm of prostate; I10 Essential (primary) hypertension; E78.5 Hyperlipidemia, unspecified; I25.10 Atherosclerotic heart disease of native coronary artery without angina pectoris; Z79.82 Long term (current) use of aspirin; Z79.02 Long term (current) use of antithrombotics/antiplatelets; Z79.899 Other long term (current) drug therapy; Z95.1 Presence of aortocoronary bypass graft; Z87.891 Personal history of nicotine dependence
CPT/HCPCS: 36415; 80048; 80051; 80053; 80061; 81003; 82009; 82565; 82803; 82947; 83036; 83735; 84100; 84520; 85025; 93005; 96361; 96365; 96366; 96372; 96375; 99285

== ENCOUNTER → 2025-01-13 | Outpatient (CLI) | payer MEDICARE ==
[2025-01-13 11:39] VITALS: BP 119/78; PULSE 70; RESP 16; TEMP 98
[2025-01-13] MEDS: LEUPROLIDE ACETATE 45 MG SQ NR (11:39)
== END ==
LOC: PROCWHC3 11:19
PROVIDERS: ATTEND Internal Medicine Hematology & Oncology
DX: C61 Malignant neoplasm of prostate (principal)
CPT/HCPCS: 96402; J9217